=== PATIENT | male | born 1975 | race Two or more races ===

== ENCOUNTER 2021-06-20 19:42 | Emergency (ER) | payer MEDICAID ==
[~2021-06-20] VITALS: Ht 165.1 cm; Wt 81.6 kg
[2021-06-20 21:42] LABS: Basophils # (auto) 0.1 10 ^3/uL (0-0.2); Basophils % (auto) 1.1 % (0.0-2.0); Eosinophils # (auto) 0.2 10 ^3/uL (0-0.8); Eosinophils % (auto) 3.3 % (0.0-7.0); Hematocrit 45.2 % (41.0-53.0); Lymphocytes # (auto) 1.9 10 ^3/uL (0.4-5.4); Lymphocytes % (auto) 35.3 % (10.0-50.0); Mean Corpuscular Hemoglobin 33.7 pg (28.0-32.0); Mean Corpuscular Hgb Conc. 35.3 g/dL (32.0-36.0); Mean Corpuscular Volume 95.5 fL (80.0-100.0); Monocytes # (auto) 0.6 10 ^3/uL (0-1.3); Monocytes % (auto) 10.3 % (0.0-12.0); Neutrophils # (auto) 2.8 10 ^3/uL (1.6-8.6); Nucleated Red Blood Cells % 0.2 %; Red Blood Cells 4.73 10^6/uL (4.5-5.90); Red Cell Distribution Width 12.7 % (11.8-14.3); White Blood Cell 5.5 10^3/uL (4.4-10.8)
[2021-06-20 21:52] LABS: Albumin 3.8 g/dL (3.4-5.0); Anion Gap 8 (5-15); Blood Urea Nitrogen 10 mg/dL (7-18); Calcium 8.3 mg/dL (8.5-10.1); Carbon Dioxide 24 mmol/L (21-32); Chloride 103 mmol/L (98-107); Glucose 126 mg/dL (74-106); Potassium 3.7 mmol/L (3.5-5.1); Sodium 135 mmol/L (136-145)
[2021-06-20 21:59] LABS: Alanine Aminotransferase 191 U/L (16-61); Alkaline Phosphatase 141 U/L (45-117); Aspartate Aminotransferase 114 U/L (15-37); BUN/Creatinine Ratio 10.2; Bilirubin, Total 0.2 mg/dL (0.2-1.0); GFR African American 106 mL/min; GFR Non-African American 88 mL/min; Total Protein 8.1 g/dL (6.4-8.2)
[2021-06-21] VITALS: BP 137/98
== END 2021-06-21 02:21 | disposition home or self-care (01) ==
LOC: ER 19:47
DX: R07.89 Other chest pain (principal); I10 Essential (primary) hypertension; F41.9 Anxiety disorder, unspecified; R74.8 Abnormal levels of other serum enzymes; F17.210 Nicotine dependence, cigarettes, uncomplicated; M79.89 Other specified soft tissue disorders
CPT/HCPCS: 36415; 71045; 80053; 83880; 84484; 85025; 93005; 93971

== ENCOUNTER 2024-05-08 00:48 | Emergency (ER) | payer MEDICAID ==
[~2024-05-08] VITALS: Ht 170.2 cm; Wt 82.0 kg
[2024-05-08] MEDS ORDERED: CYCL-837 PO (02:15)
[2024-05-08] MEDS ORDERED: IBUP-1455 PO (02:15)
[2024-05-08] MEDS: IBUPROFEN 600 MG TAB PO ONE (03:08)
[2024-05-08 03:09] VITALS: BP 119/70; TEMP 97.7
[2024-05-08 03:19] VITALS: PULSE 95; RESP 20; O2SAT 97
== END 2024-05-08 03:22 | disposition home or self-care (01) ==
LOC: ER 00:48
DX: S20.212A Contusion of left front wall of thorax, initial encounter (principal); F17.210 Nicotine dependence, cigarettes, uncomplicated; W18.09XA Striking against other object with subsequent fall, initial encounter; Y93.89 Activity, other specified; Y92.89 Other specified places as the place of occurrence of the external cause; Y99.8 Other external cause status
CPT/HCPCS: 71101